=== PATIENT | male | born 1975 | race African-American/Black ===

== ENCOUNTER 2016-09-13 06:59 | Emergency (ER) | payer OTHER ==
[~2016-09-13] VITALS: Ht 170.2 cm; Wt 82.6 kg
[2016-09-13] MEDS ORDERED: LISI40TAB PO (07:22)
[2016-09-13] MEDS ORDERED: ONDANSETRON 4 MG ORAL DISINTEGRATING TAB (S0181) PO ONE (07:45)
[2016-09-13] MEDS ORDERED: SODIUM CHLORIDE IV ONE (07:45)
[2016-09-13] MEDS ORDERED: MECLIZINE 25 MG TABLET PO ONE (07:45)
[2016-09-13] MEDS ORDERED: ONDANSETRON 4MG/2ML VIAL (J2405) As Ordered ONE (07:46)
[2016-09-13] MEDS ORDERED: ONDANSETRON 4MG/2ML VIAL (J2405) IV ONE (08:00)
--- NOTE | 2016-09-13 08:59 | REP ---
CT Head without contrast HISTORY: Dizziness COMPARISON: None There is no intraparenchymal hemorrhage, acute infarct, mass or midline shift. The ventricular system is normal in appearance. There is no extra cerebral collection. There is no fracture. The visualized sinuses are clear. IMPRESSION: There is no intracranial lesion. Signed by Moses Johnson MD 09/13/2016 08:50 A
[2016-09-13] MEDS ORDERED: AMOX500C PO (09:23)
[2016-09-13] MEDS ORDERED: MECL-68 PO (09:23)
[2016-09-13 09:58] VITALS: BP 137/71
== END 2016-09-13 10:00 | disposition home or self-care (01) ==
LOC: M ED 07:44
DX: H65.92 Unspecified nonsuppurative otitis media, left ear (principal); I10 Essential (primary) hypertension; Z79.899 Other long term (current) drug therapy
CPT/HCPCS: 70450; 96374; 99283; J2405

== ENCOUNTER 2020-07-19 06:03 | Emergency (ER) | payer OTHER ==
[~2020-07-19] VITALS: Ht 170.2 cm; Wt 81.8 kg
[~2020-07-19 06:03] MED LIST: AMOX500C PO; LISI40TA4 PO; MECL1TAB31 PO
[2020-07-19] MEDS ORDERED: ONDANSETRON 4MG/2ML VIAL IV ONE (06:30)
[2020-07-19] MEDS ORDERED: MECLIZINE 25 MG TABLET PO ONE (06:30)
[2020-07-19] MEDS ORDERED: NS 1,000 ML IV ONE (06:30)
[2020-07-19 06:58] LABS: BASO % 0.3 % (0.0-1.0); EOS # 0.1 10^3/uL (0.0-0.5); EOS % 1.2 % (0.0-3.0); HEMATOCRIT 45.1 % (42.0-52.0); HEMOGLOBIN 14.4 g/dl (13.5-17.5); LYMPH # 1.9 10^3/uL (1.5-5.0); LYMPH % 18.6 % (24.0-44.0); MEAN CORPUSCULAR HEMOGLOBIN 27.3 pg (27.0-33.0); MEAN CORPUSCULAR HGB CONC 31.9 g/dl (32.0-36.5); MEAN CORPUSCULAR VOLUME 85.6 fl (80.0-96.0); MONO # 0.4 10^3/uL (0.0-0.8); MONO % 3.8 % (2.0-8.0); NEUTROPHILS # 7.7 10^3/uL (1.5-8.5); PLATELET COUNT, AUTOMATED 250 10^3/uL (150-450); RED BLOOD COUNT 5.27 10^6/uL (4.30-6.10); WHITE BLOOD COUNT 10.2 10^3/uL (4.0-10.0)
[2020-07-19 07:25] LABS: ALT/SGPT 37 U/L (12-78); BILIRUBIN,TOTAL 0.4 MG/DL (0.2-1.0); BLOOD UREA NITROGEN 22 MG/DL (7-18); CALCIUM LEVEL 8.8 MG/DL (8.5-10.1); CARBON DIOXIDE LEVEL 17 MEQ/L (21-32); CHLORIDE LEVEL 106 MEQ/L (98-107); CK-MB VALUE MASS 2.8 NG/ML (<3.6); CPK CREATINE PHOSPHOKINASE 258 U/L (39-308); CREATININE FOR GFR 1.11 MG/DL (0.70-1.30); GLOMERULAR FILTRATION RATE > 60.0 (>60); GLUCOSE, FASTING 186 MG/DL (70-100); MB/CK RELATIVE INDEX 1.09 (< OR =4); POTASSIUM SERUM 3.6 MEQ/L (3.5-5.1); SODIUM LEVEL 139 MEQ/L (136-145); TOTAL PROTEIN 7.1 GM/DL (6.4-8.2); TROPONIN I 0.04 NG/ML (< 0.10)
--- NOTE | 2020-07-19 08:09 | REPVR ---
PROCEDURE INFORMATION: Exam: CT Head Without Contrast Exam date and time: 07/19/2020 7:42 AM Age: 45 years old Clinical indication: Dizziness; Additional info: Dizziness, n/v TECHNIQUE: Imaging protocol: Computed tomography of the head without contrast. Radiation optimization: All CT scans at this facility use at least one of these dose optimization techniques: automated exposure control; mA and/or kV adjustment per patient size (includes targeted exams where dose is matched to clinical indication); or iterative reconstruction. COMPARISON: CT Head without contrast 09/13/2016 8:25 AM FINDINGS: Brain: Examination of the brain demonstrates normal structure and attenuation.The cortical davey / white matter interfaces are preserved throughout the brain.No acute infarction, masses or hemorrhage is seen. Cerebral ventricles: The ventricular system is not dilated and is appropriate for the patient's age. Bones/joints: Unremarkable. No acute fracture. Paranasal sinuses: Visualized sinuses are unremarkable. No fluid levels. Mastoid air cells: Visualized mastoid air cells are well aerated. Soft tissues: Unremarkable. IMPRESSION: No acute infarction, masses or hemorrhage is seen. No acute intracranial abnormality is identified. Electronically signed by: Ashok Nolasco On 07/19/2020 08:10:18 AM
--- NOTE | 2020-07-19 08:23 | ECGEPIP ---
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
[2020-07-19] MEDS ORDERED: METOCLOPRAMIDE INJ 10MG/2ML VIAL (J2765 PER 1) IV ONE (10:20)
[2020-07-19] MEDS ORDERED: diazePAM 10MG/2ML SYRINGE (J3360 PER 5MG) IV ONE (12:30)
[2020-07-19 14:15] LABS: RSV AMPLIFICATION NEGATIVE (NEGATIVE)
[2020-07-19] MEDS ORDERED: MECL1TAB31 PO (14:18)
[2020-07-19] MEDS ORDERED: ONDA4TAB6 PO (14:18)
[2020-07-19] MEDS ORDERED: [UNRECOGNIZED DRUG - REMARK] (14:35)
[2020-07-19 14:39] VITALS: BP 159/79
--- NOTE | 2020-07-19 14:45 | CR.PDOC ---
General Date of Consultation: Jul 19, 2020 Referring Provider: BETTY FLORES PA-C Attending Physician: ARLEEN STEPHENS MD Consultation REASON FOR CONSULTATION/CHIEF COMPLAINT: dizziness, nausea and vomiting x 1 day, consult for possible admission. HISTORY OF PRESENT ILLNESS: Patient is a 45-year-old male with a past medical history of hypertension who presents with dizziness, nausea, vomiting and right ear fullness since 2 AM. He states that he first experienced dizziness around 6 PM last night and then went to bed. He woke up feeling like the room was spinning around 2 AM and proceeded to experience nausea and vomiting at that time. He states that he is tired from vomiting and that the last time he vomited was actually last night and since then he has been dry retching. Patient denies any sinus or ear infections in the past month. He denies any headaches, ringing of the ears, blurry vision, nasal congestion, fevers, chills, and/or sore throat. He denies any sick contacts and travel at this time. He does report that he had a similar episode many years back that resolved after visiting the ER and being prescribed meclizine. He states that that episode was a lot shorter than this episode as far as he remembers. He denies any weakness, slurred speech, or cognitive problems at this time. ALLERGIES: Please see below. HOME MEDICATIONS: Please see below. PAST MEDICAL HISTORY: 1. Hypertension. PAST SURGICAL HISTORY: Denies FAMILY HISTORY: Father: Cardiovascular disease, abdominal aortic aneurysm Mother: None Hereditary Diseases: Denies any auditory hereditary diseases SOCIAL HISTORY: Marital status and/or living arrangements: , lives at home Tobacco use: Denies ETOH: Denies Illicit drug use: Denies IV drug use: Denies REVIEW OF SYSTEMS: General: Feels well, denies weight changes, denies fatigue, no difficulty sleeping, denies fevers, chills, night sweats HEENT: Denies headaches, diplopia, ocular discharge, red eyes, denies sore throat, acute change in hearing or vision, no rhinorrhea, denies ear pain or discharge, denies tooth pain or odynophagia Cardiology: No chest pain, palpitations, orthopnea/PND, no lower extremity edema. No syncope. No claudication. Pulmonology: Negative for cough, dyspnea or pleuritic chest pain. Denies wheezing, denies snoring. Denies hemoptysis Gastroenterology: No diarrhea, constipation, melena, hematochezia, denies abdominal pain, denies difficulty swallowing, denies reflux of the abdominal contents Genitourinary: Denies hematochezia, dysuria Neurology: Denies numbness, tingling, headaches, new or recent loss of coordination, new or recent motor or sensory losses, seizures PHYSICAL EXAMINATION: General: Appears in no acute distress, well-nourished, and hydrated. HEENT: Normocephalic, atraumatic. Eyes: EOMI, PERRLA, no scleral icterus, no conjunctival erythema, no ocular discharge. Ears: tympanic membranes intact, ng and transparent, cone of light reflex visible. Right ear canal contains cerumen leading to some limitation of visualization Nose: Nares patent, nasal mucosa pink and moist. Throat: Oral mucosa moist, uvula midline, no significant dental abnormalities seen. Neck: Supple, no lymphadenopathy Cardiology: Regular rate and rhythm, no murmurs, rubs or gallops Pulmonary: Clear to auscultation bilaterally, no wheezes, rhonchi or rales. Abdomen: soft, nontender, no organomegaly, bowel sounds are normal Extremities: No clubbing and no edema. LABORATORY DATA: Please see below. ASSESSMENT/PLAN: 1. Vertigo: PT evaluation during patient's ER visit elicited lateral nystagmus during [place]-Hall[place] test. Patient needs follow-up with ENT and physical therapy for vestibular therapy. Patient may be discharged with 3 days worth of Zofran when necessary for nausea every 8 hours and meclizine for the next 7 days. Patient should also follow up with PCP to establish good blood pressure control. Patient was advised not to drive at this time. Patient verbalized understanding and stated that his would drive him home. Patient agreed that he did not need to stay in the hospital at this time. Vital Signs/I&O Vital Signs Date Time Temp Pulse Resp B/P (MAP) Pulse Ox O2 Delivery O2 Flow Rate FiO2 07/19/20 07:42 87 165/90 (115) 07/19/20 06:04 98.3 16 96 Laboratory Data Labs 24H Laboratory Tests 2 07/19/20 06:41: Immature Granulocyte % (Auto) 1.1, Neutrophils (%) (Auto) 75.0H, Lymphocytes (%) (Auto) 18.6L, Monocytes (%) (Auto) 3.8, Eosinophils (%) (Auto) 1.2, Basophils (%) (Auto) 0.3, Neutrophils # (Auto) 7.7, Lymphocytes # (Auto) 1.9, Monocytes # (Auto) 0.4, Eosinophils # (Auto) 0.1, Basophils # (Auto) 0.0, Nucleated Red Blood Cells % (auto) 0.0, Anion Gap 16, Glomerular Filtration Rate > 60.0, Calcium Level 8.8, Total Bilirubin 0.4, Aspartate Amino Transf (AST/SGOT) 20, Alanine Aminotransferase (ALT/SGPT) 37, Alkaline Phosphatase 104, Total Creatine Kinase 258, Creatine Kinase MB 2.8, Creatine Kinase MB Relative Index 1.09, Troponin I 0.04, Total Protein 7.1, Albumin 4.0, Albumin/Globulin Ratio 1.3 07/19/20 12:58: Coronavirus (COVID-19)(PCR) NEGATIVE, Influenza Type A (RT-PCR) NEGATIVE, Influenza Type B (RT-PCR) NEGATIVE, Respiratory Syncytial Virus (PCR) NEGATIVE CBC/BMP Laboratory Tests 07/19/20 06:41 Allergies Coded Allergies: No Known Allergies (Unverified , 09/13/16) Home Medications Scheduled Lisinopril (Lisinopril) 40 Mg Tab, 40 MG PO DAILY, (Reported) Meclizine HCl (Meclizine HCl) 25 Mg Tablet, 25 MG PO Q8H for 7 Days, #30 Scheduled PRN Ondansetron (Ondansetron Odt) 4 Mg Tab.rapdis, 4 MG PO Q6-8HP PRN for nausea/vomiting for 4 Days, #8 GME ATTESTATION GME ATTESTATION My faculty preceptor for this patient encounter was physically present during the encounter and was fully available. All aspects of the patient interview, examination, medical decision making process, and medical care plan development were reviewed and approved by the faculty preceptor. The faculty preceptor is aware and concurs with the plan as stated in the body of this note and will attest to such by his/her cosignature. ATTENDING NOTE I, Arleen Stephens MD, have independently examined this patient and performed my own physical exam, as well as reviewed the documentation and edited where necessary. I have discussed in detail with the resident / student the findings and plan of treatment as documented by the resident / student and edited their note. I agree with their findings and treatment plan and have edited their documentation. The patient was seen and examined in detail and after evaluation, it was due to mind that the patient has in her ear issues and possibly benign positional vertigo. His CT scan of the head has been normal. He denies any complaints and states it only when he tries to move his head rapidly. He feels nauseous and feels dry heaving and sometimes wrenching and he gets dizzy. When he keeps his h ad stabilized. He does not feel any of these symptoms. He has had the episodes in the past as well. She will be given meclizine and Zofran . He has been advised to follow-up with the ENT and physical therapy as an outpatient. The ER was up dated with the plan as well Luis Felipe Devlin DO Jul 19, 2020 14:44 ARLEEN STEPHENS MD Jul 19, 2020 15:08
== END 2020-07-19 15:10 | disposition home or self-care (01) ==
LOC: M ED 06:03
DX: Z53.9 Procedure and treatment not carried out, unspecified reason (principal); R42 Dizziness and giddiness; R11.2 Nausea with vomiting, unspecified; I10 Essential (primary) hypertension; Z79.899 Other long term (current) drug therapy
CPT/HCPCS: 70450; 80053; 82550; 82553; 84484; 85025; 87631; 93005; 96361; 96374; 96375; 97161; 97530; 99284; J2405; J2765; J3360

== ENCOUNTER → 2022-08-20 | Outpatient (CLI) | payer OTHER ==
[~2022-08-20] MED LIST changes: +ONDA4TAB6 PO; +[UNRECOGNIZED DRUG - REMARK]
== END ==
LOC: M RAD 07:24
PROVIDERS: ATTEND Internal Medicine
DX: M54.2 Cervicalgia (principal)

== ENCOUNTER → 2022-11-13 | Outpatient (CLI) | payer OTHER | LOC: M SLEEP 20:00 | PROVIDERS: ATTEND Internal Medicine | DX: G47.9 Sleep disorder, unspecified (principal) ==

== ENCOUNTER 2023-01-08 09:16 | Emergency (ER) | payer OTHER ==
[~2023-01-08] VITALS: Ht 170.2 cm; Wt 81.8 kg
[2023-01-08] MEDS ORDERED: NS 1,000 ML IV ONE (11:25)
[2023-01-08] MEDS ORDERED: FAMOTIDINE 20MG/2ML VIAL IVP ONE (11:25)
[2023-01-08] MEDS ORDERED: methylPREDNISolone 125MG 2ML VIAL IV ONE (11:25)
[2023-01-08 11:26] LABS: APPEARANCE, URINE CLEAR (CLEAR); BACTERIA, URINE AUTO NEGATIVE (NEGATIVE); BILIRUBIN, URINE AUTO NEGATIVE (NEGATIVE); BLOOD, URINE BLOOD NEGATIVE (NEGATIVE); COLOR, URINE YELLOW (YELLOW); GLUCOSE, URINE (UA) AUTO NEGATIVE (NEGATIVE); KETONE, URINE AUTO NEGATIVE (NEGATIVE); LEUKOCYTE ESTERASE, URINE AUTO NEGATIVE (NEGATIVE); MUCUS, URINE SMALL (NEGATIVE); NITRITE, URINE AUTO NEGATIVE (NEGATIVE); PROTEIN, URINE AUTO NEGATIVE (NEGATIVE); RBC, URINE AUTO 0 /HPF (0-3); SPECIFIC GRAVITY URINE AUTO 1.016 (1.002-1.035); SQUAMOUS EPITHELIAL CELL UR AU 0 /HPF (0-6); UROBILINOGEN, URINE AUTO 0.2 mg/dL (0.0-2.0); WBC, URINE AUTO 1 /HPF (0-3)
[2023-01-08 11:55] LABS: BASO % 0.1 % (0.0-1.0); HEMATOCRIT 49.5 % (42.0-52.0); HEMOGLOBIN 16.1 g/dl (13.5-17.5); LYMPH # 1.7 10^3/uL (1.5-5.0); LYMPH % 18.6 % (24.0-44.0); MEAN CORPUSCULAR HEMOGLOBIN 28.5 pg (27.0-33.0); MEAN CORPUSCULAR HGB CONC 32.5 g/dl (32.0-36.5); MEAN CORPUSCULAR VOLUME 87.6 fl (80.0-96.0); MONO # 0.6 10^3/uL (0.0-0.8); MONO % 6.3 % (2.0-8.0); NEUTROPHILS # 5.7 10^3/uL (1.5-8.5); NEUTROPHILS % 63.6 % (36.0-66.0); PLATELET COUNT, AUTOMATED 220 10^3/uL (150-450); RED BLOOD COUNT 5.65 10^6/uL (4.30-6.10); WHITE BLOOD COUNT 8.9 10^3/uL (4.0-10.0)
[2023-01-08 12:21] LABS: ERYTHROCYTE SEDIMENTATION RATE 14 mm/hr (0-15)
[2023-01-08 12:24] LABS: BLOOD UREA NITROGEN 16 MG/DL (9-23); CALCIUM LEVEL 8.6 MG/DL (8.5-10.1); CARBON DIOXIDE LEVEL 25 MMOL/L (20-31); CHLORIDE LEVEL 106 MMOL/L (98-107); CREATININE FOR GFR 0.91 MG/DL (0.70-1.30); GLOMERULAR FILTRATION RATE > 60.0 (>60); GLUCOSE, FASTING 105 MG/DL (60-100); POTASSIUM SERUM 5.6 MMOL/L (3.5-5.1); SODIUM LEVEL 139 MMOL/L (136-145)
[2023-01-08] MEDS ORDERED: PRED20TA PO (12:49)
[2023-01-08] MEDS ORDERED: CETI10CH PO (12:49)
[2023-01-08] MEDS ORDERED: FAMO1TAB11 PO (12:49)
[2023-01-08] MEDS ORDERED: BENA2CRE2 TOP (12:49)
[2023-01-08 13:05] VITALS: BP 117/78; TEMP 97.8; O2SAT 99
== END 2023-01-08 13:04 | disposition home or self-care (01) ==
LOC: M ED 09:16
DX: L50.9 Urticaria, unspecified (principal); R19.7 Diarrhea, unspecified; I10 Essential (primary) hypertension; Z79.899 Other long term (current) drug therapy
CPT/HCPCS: 80048; 81001; 85025; 85652; 86140; 87507; 96361; 96374; 96375; 99284; J2930

== ENCOUNTER → 2023-06-28 | Outpatient (CLI) | payer OTHER ==
[~2023-06-28] MED LIST changes: +BENA2CRE2 TOP; +CETI10CH PO; +FAMO1TAB11 PO; +MECL-209 PO; -MECL1TAB31 PO; +PRED20TA PO
== END ==
LOC: M RAD 09:59
PROVIDERS: ATTEND Internal Medicine
DX: Z13.6 Encounter for screening for cardiovascular disorders (principal); Z82.49 Family history of ischemic heart disease and other diseases of the circulatory system; N28.89 Other specified disorders of kidney and ureter

== ENCOUNTER 2024-07-19 08:38 | Day surgery (SDC) | payer OTHER ==
[~2024-07-19] VITALS: Ht 170.2 cm; Wt 74.5 kg
[~2024-07-19 08:38] MED LIST changes: +D-10TAB3 PO; +K2 P1TAB PO; +MAGN400C2 PO; +OMEG100011 PO; +ONDA-282 PO; -ONDA4TAB6 PO
[2024-07-19] MEDS ORDERED: LIDOCAINE 2% 100MG/5ML SDV (FOR ANES.) ONE (08:39)
[2024-07-19 10:31] VITALS: BP 111/59; O2SAT 100
== END 2024-07-19 10:36 | disposition home or self-care (01) ==
LOC: M OPP 08:38
PROVIDERS: ATTEND Surgery
DX: K63.5 Polyp of colon (principal); K64.8 Other hemorrhoids; I10 Essential (primary) hypertension; Z79.899 Other long term (current) drug therapy